=== PATIENT | male | born 1985 | race Two or more races ===

== ENCOUNTER 2024-11-10 13:24 | Emergency (ER) | payer OTHER, SELFPAY ==
[2024-11-10 13:25] VITALS: BMI 21.7
[2024-11-10 13:50] VITALS: BP 126/81; PULSE 99; RESP 18; TEMP 37; O2SAT 97
--- NOTE | 2024-11-10 14:13 | EDNOTE_ITS ---
<Statement entered by Paola Kimble MD - 11/16/24 05:24> As co-signing physician, I was present and available for consult prn. I concur with the plan and care as documented by the midlevel provider. ED Back Injury Pain RME/HPI General Chief Complaint: Back Pain/Injury Stated Complaint: RIGHT FLANK PAIN Time Seen by Provider: 11/10/24 13:57 Arrival date/time: 11/10/24 13:24 This is a 38-year-old male who comes in with complaints of right upper back pain that started yesterday. Patient states that he thinks it started after he lifted something but does not remember hurting his back when lifting objects. Patient denies urinary symptoms. No loss of bladder or bowel function Related Data Home Medications ?Medication ?Instructions ?Recorded ?Confirmed levetiracetam 500 mg tablet 1,500 mg PO BID ##0 09/08/17 (Keppra) oxcarbazepine 600 mg tablet 600 mg PO BID ##0 03/14/12 09/08/17 Previous Rx's ?Medication ?Instructions ?Recorded amoxicillin 500 mg capsule 500 mg PO TID #30 caps 08/19 10/02 ibuprofen 600 mg tablet 600 mg PO TID #30 tabs 09/09 cyclobenzaprine 10 mg tablet 10 mg PO BID #20 tabs ibuprofen 800 mg tablet 800 mg PO Q6H PRN pain #20 t abs 11/10/24 Allergies Allergy/AdvReac Type Severity Reaction Status Date / Time No Known Allergies Allergy Verified 11/10/24 13:26 Review of Systems Review of Systems Systems Reviewed: All systems reviewed, normal except as documented Past Medical History Social History SMOKING STATUS: Never smoker Travel History EBOLA RISK: No ED Exam General General appearance: Present alert and in no apparent distress Head Head exam: Present atraumatic Eye Eye exam: Present normal appearance, PERRL and EOMI ENT ENT exam: Present normal exam, normal oropharynx and mucous membranes moist Neck Neck exam: Present normal inspection, full ROM and trachea midline Chest Chest inspection: Present normal inspection and symmetric chest wall rise Respiratory Respiratory exam: Present normal lung sounds bilaterally Cardiovascular Cardiovascular exam: Present regular rate, normal rhythm and normal heart sounds Abdominal Exam Abdominal exam: Present soft Extremities Exam Extremities exam: Present normal inspection and full ROM Back Exam Back exam: Present normal inspection and full ROM Neurological Exam Neurological exam: Present alert, oriented X3 and CN II-XII intact Psychiatric Psychiatric exam: Present normal affect and normal mood Skin Skin exam: Present warm, dry, intact and normal color Course Quality Measures none Orders Category Date Time Status Acetaminophen Tab [Tylenol ES Tab] Med 11/10/24 13:56 Discontinued 500 mg PO X1 ONE CYCLObenzaPRINE [Flexeril] Med 11/10/24 13:56 Discontinued 5 mg PO X1 ONE Ibuprofen Tab [Motrin Tab] Med 11/10/24 13:56 Discontinued 800 mg PO X1 ONE Vital Signs Vital signs: Vital Signs Temperature 98.6 F 11/10/24 13:50 Pulse Rate 99 11/10/24 13:50 Respiratory Rate 18 11/10/24 13:50 Blood Pressure 126/81 11/10/24 13:50 Pulse Oximetry (%) 97 11/10/24 13:50 Oxygen Delivery Method Room Air 11/10/24 13:50 Back Pain / Injury MDM Narrative MDM Narrative:: I did order a urinalysis but it was never collected. Patient states he feels better with medication. Patient does not want to do a urine sample at this time. Patient states he does not feel like urinating and would like to go home at this time. Patient states that he will come back to the emergency room if symptoms change or worsen. Patient data External records reviewed:: [facility] previous records Clinical information provided by:: patient Social determinants that could affect healthcare access:: none Patient has the following chronic illnesses:: none How is presenting disease/condition affected by chronic disease/condition?: no chronic disease Evaluation data The following diagnostics were reviewed and interpreted by me:: other (specify) (none ) Lab and/or radiology exams considered but not ordered:: none Interpretation Summary: see note Medications / Prescriptions Medications or Prescriptions considered but not ordered:: none Medication administrations:: Medication Administration History Discontinued Medications Acetaminophen (Acetaminophen 500 Mg Tablet) 500 mg PO X1 ONE Stop: 11/10/24 13:57 Last Admin: 11/10/24 14:15 Dose: 500 mg Documented By: KAMINI Cyclobenzaprine HCl (Cyclobenzaprine 5 Mg Tablet) 5 mg PO X1 ONE Stop: 11/10/24 13:57 Last Admin: 11/10/24 14:15 Dose: 5 mg Documented By: KAMINI Ibuprofen (Ibuprofen Tab 400 Mg Tablet) 800 mg PO X1 ONE Stop: 11/10/24 13:57 Last Admin: 11/10/24 14:15 Dose: 800 mg Documented By: KF none Consultations Consultation(s) initiated? (list below): No Diagnosis Most likely diagnosis given after review of the tests above:: back pain Admission Indicated Admission indicated?: not indicated Admission Request Was there a request for admission?: No Disposition Plan Disposition Plan: Discharge Discharge Attestation Discharge Attestation: The patient and all family members were given an opportunity to ask questions and understood the discharge instructions. Discharge instructions specifically effects, indications for sooner follow up or return to the emergency department, and the expected course of current diagnosis. Patient condition: Stable Discharge Plan Plan Patient Disposition: HOME (Self Care) Patient condition on transfer: Stable Prescriptions/Referrals Prescriptions/Med Rec: New ibuprofen 800 mg tablet 800 mg PO Q6H PRN (Reason: pain) Qty: 20 0RF cyclobenzaprine 10 mg tablet 10 mg PO BID Qty: 20 0RF No Action levetiracetam [Keppra] 500 MG tablet 1,500 mg PO BID Qty: 0 oxcarbazepine 600 MG tablet 600 mg PO BID Qty: 0 amoxicillin 500 mg capsule 500 mg PO TID Qty: 30 0RF ibuprofen 600 mg tablet 600 mg PO TID Qty: 30 0RF Referrals: Doug Larose MD [Primary Care Provider] - In 1 week Problem List Clinical Impression: Back pain Patient/Caregiver Discharge Instructions Discharge Activity: activity as tolerated Education Materials: ED Back Care Tips Additional Instructions: Follow up with primary provider in 1-2 days. Come back to ED if symptoms change or worsen Print Language: Kyrgyz Stand Alone Forms: [facility]quel Award Info., Patient Portal Info Letter PA/OUTREACH COORDINATOR Supervising Physician PA/GONZALES Supervising Physician: RYAN
[2024-11-10] MEDS: IBUPROFEN TAB 400 MG TABLET 800 MG PO (14:15)
[2024-11-10] MEDS: CYCLObenzaPRINE 5 MG TABLET PO (14:15)
[2024-11-10] MEDS: ACETAMINOPHEN 500 MG TABLET PO (14:15)
== END 2024-11-10 16:10 | disposition home or self-care (01) ==
PROVIDERS: Emergency Provider Emergency Medicine; PCP Family Medicine
DX: M54.6 Pain in thoracic spine (principal)
CPT/HCPCS: 81001; 99283; A9270